=== PATIENT | male | born 1985 | race Caucasian/White ===

== ENCOUNTER 2017-12-29 12:25 | Emergency (ER) | payer OTHER ==
[~2017-12-29] VITALS: Ht 188 cm; Wt 97.5 kg
[~2017-12-29 12:25] MED LIST: ANTIVERT12.5 MG PO; AUGMENTIN 875875 MG PO; BACTRIM DS TAB1 EACH PO; CELEBREX 200 M200 MG; CELEBREX 200 M200 MG PO; CORTISPORIN OTI10 ML OTIC; EAR DROPS15 ML OTIC; FLEXERIL PO; HYCET 7.5 MG-3473 ML PO; HYDROCODON-ACE1 EAC7 PO; IBUPROFEN 400400 M2 PO; IBUPROFEN 600600 M1 PO; IBUPROFEN 800800 M1 PO; IBUPROFEN 800800 MG PO; INDOMETHACIN 2525 MG PO; MEDROL DOSPAK21 TAB PO; NOHOMEMEDICATIONS; NORCO 5-325 TA1 EACH PO; PERCOCET 5-3251 EACH PO; PROMETHAZINE-C120 ML PO; TRAMADOL 50 MG50 MG PO; VICODIN; ZOFRAN ODT4 MG PO; ZOFRAN4 MG PO; ZPAK PO
[2017-12-29 12:57] LABS: HEMATOCRIT 46.5 % (42.0-52.0); HEMOGLOBIN 15.7 gm/dL (14.0-18.0); MCH 30.7 pg (26.0-34.0); MCHC 33.8 g/dL (28.0-37.0); MCV 90.6 fL (80.0-100.0); RBC 5.13 mil/uL (4.50-6.00); RDW 13.5 % (10.5-14.5); WBC 8.3 thou/uL (4.0-11.0)
[2017-12-29 13:04] LABS: CALCIUM 9.2 mg/dL (8.5-10.1); CREATININE 0.9 mg/dL (0.7-1.3); POTASSIUM 3.9 mmol/L (3.5-5.1)
[2017-12-29 13:10] LABS: ALBUMIN 3.9 g/dL (3.4-5.0); TOTAL BILIRUBIN 0.5 mg/dL (<0.1-1.0); TOTAL PROTEIN 8.2 g/dL (6.4-8.2)
[2017-12-29 14:19] LABS: URINE BILIRUBIN NEGATIVE (Negative); URINE BLOOD TRACE (Negative); URINE CLARITY CLEAR; URINE COLOR YELLOW; URINE GLUCOSE-RANDOM* NEGATIVE (Negative); URINE KETONES NEGATIVE (Negative); URINE LEUKOCYTES-REFLEX NEGATIVE (Negative); URINE NITRITE-REFLEX NEGATIVE (Negative); URINE PROTEIN (DIPSTICK) NEGATIVE (Negative); URINE UROBILINOGEN 0.2 E.U./dl (0.2-1.0)
[2017-12-29 14:49] VITALS: BP 111/72
== END 2017-12-29 14:50 | disposition home or self-care (01) ==
LOC: ER 12:25
PROVIDERS: Student in an Organized Health Care Education/Training Program
DX: R19.7 Diarrhea, unspecified (principal); F17.210 Nicotine dependence, cigarettes, uncomplicated; M19.90 Unspecified osteoarthritis, unspecified site; K64.9 Unspecified hemorrhoids; Z88.5 Allergy status to narcotic agent

== ENCOUNTER 2018-03-27 23:14 | Emergency (ER) | payer OTHER ==
[~2018-03-27] VITALS: Ht 190.5 cm; Wt 128.8 kg
[2018-03-27 23:37] LABS: URINE BILIRUBIN NEGATIVE (Negative); URINE BLOOD 1+ (Negative); URINE CLARITY CLEAR; URINE COLOR YELLOW; URINE GLUCOSE-RANDOM* NEGATIVE (Negative); URINE KETONES TRACE (Negative); URINE LEUKOCYTES-REFLEX NEGATIVE (Negative); URINE NITRITE-REFLEX NEGATIVE (Negative); URINE PROTEIN (DIPSTICK) NEGATIVE (Negative); URINE SPECIFIC GRAVITY >= 1.030 (1.005-1.035); URINE UROBILINOGEN 0.2 E.U./dl (0.2-1.0)
[2018-03-27 23:44] LABS: BACTERIA-REFLEX 1-9 Few /HPF (None Seen); CRYSTALS None Seen /LPF (None Seen); HYALINE CASTS 0-3 Few /LPF (None Seen); MUCUS 0-3 Light strn/LPF (None Seen); SQUAMOUS 0-3 Few /LPF (0-3); URINE RBC 0-2 Rare /HPF (0-2); URINE WBC-REFLEX 0-5 Rare /HPF (0-5)
[2018-03-28] MEDS ORDERED: IBUPROFEN 800800 M1 PO (04:10)
[2018-03-28 04:19] LABS: HEMATOCRIT 45.2 % (42.0-52.0); HEMOGLOBIN 15.2 gm/dL (14.0-18.0); MCH 30.8 pg (26.0-34.0); MCHC 33.6 g/dL (28.0-37.0); MCV 91.6 fL (80.0-100.0); RBC 4.94 mil/uL (4.50-6.00); RDW 13.7 % (10.5-14.5); WBC 9.3 thou/uL (4.0-11.0)
[2018-03-28 04:26] LABS: CALCIUM 9.6 mg/dL (8.5-10.1); CREATININE 0.9 mg/dL (0.7-1.3); POTASSIUM 4.5 mmol/L (3.5-5.1)
[2018-03-28 05:51] VITALS: BP 119/71
[2018-03-28] MEDS ORDERED: PHENAZOPYRIDIN200 M2 PO (15:41)
[2018-03-28] MEDS ORDERED: NAPROSYN500 MG PO (15:42)
== END 2018-03-28 05:52 | disposition home or self-care (01) ==
LOC: ER 23:14
PROVIDERS: Emergency Medicine; Physician Assistant
DX: K59.00 Constipation, unspecified (principal); R31.9 Hematuria, unspecified; F17.210 Nicotine dependence, cigarettes, uncomplicated; M19.90 Unspecified osteoarthritis, unspecified site; Z88.5 Allergy status to narcotic agent

== ENCOUNTER 2018-03-28 13:54 | Emergency (ER) | payer OTHER ==
[~2018-03-28] VITALS: Ht 190.5 cm; Wt 128.8 kg
[2018-03-28 15:13] LABS: URINE BILIRUBIN NEGATIVE (Negative); URINE BLOOD TRACE (Negative); URINE CLARITY CLEAR; URINE COLOR YELLOW; URINE GLUCOSE-RANDOM* NEGATIVE (Negative); URINE KETONES NEGATIVE (Negative); URINE LEUKOCYTES NEGATIVE (Negative); URINE NITRITE NEGATIVE (Negative); URINE PROTEIN (DIPSTICK) NEGATIVE (Negative); URINE UROBILINOGEN 0.2 E.U./dl (0.2-1.0)
[2018-03-28] MEDS ORDERED: PHENAZOPYRIDIN200 M2 PO (15:41)
[2018-03-28] MEDS ORDERED: NAPROSYN500 MG PO (15:42)
[2018-03-28 15:48] VITALS: BP 126/94
== END 2018-03-28 15:51 | disposition home or self-care (01) ==
LOC: ER 13:54
PROVIDERS: Physician Assistant
DX: R30.0 Dysuria (principal); M54.9 Dorsalgia, unspecified; R31.9 Hematuria, unspecified; F17.210 Nicotine dependence, cigarettes, uncomplicated; Z88.5 Allergy status to narcotic agent; M19.90 Unspecified osteoarthritis, unspecified site

== ENCOUNTER 2018-05-12 10:39 | Emergency (ER) | payer OTHER ==
[~2018-05-12] VITALS: Ht 190.5 cm; Wt 180.1 kg
[~2018-05-12 10:39] MED LIST changes: +NAPROSYN500 MG PO; +PHENAZOPYRIDIN200 M2 PO
[2018-05-12 10:51] VITALS: BP 113/76
[2018-05-12] MEDS ORDERED: TESSALON PERLE100 MG PO (11:28)
== END 2018-05-12 11:40 | disposition home or self-care (01) ==
LOC: ER 10:39
DX: J06.9 Acute upper respiratory infection, unspecified (principal)

== ENCOUNTER 2018-09-01 17:12 | Emergency (ER) | payer OTHER ==
[~2018-09-01] VITALS: Ht 190.5 cm; Wt 127.0 kg
[~2018-09-01 17:12] MED LIST changes: +TESSALON PERLE100 MG PO
[2018-09-01] MEDS ORDERED: NAPROSYN500 MG PO (19:08)
[2018-09-01] MEDS ORDERED: NORFLEX100 MG PO (19:08)
[2018-09-01 19:15] VITALS: BP 142/89
== END 2018-09-01 19:16 | disposition home or self-care (01) ==
LOC: ER 17:12
DX: S46.811A Strain of other muscles, fascia and tendons at shoulder and upper arm level, right arm, initial encounter (principal); M75.01 Adhesive capsulitis of right shoulder; M72.2 Plantar fascial fibromatosis; F17.210 Nicotine dependence, cigarettes, uncomplicated; M19.90 Unspecified osteoarthritis, unspecified site; Z88.5 Allergy status to narcotic agent; V89.2XXA Person injured in unspecified motor-vehicle accident, traffic, initial encounter; Y92.89 Other specified places as the place of occurrence of the external cause; Y93.89 Activity, other specified; Y99.8 Other external cause status

== ENCOUNTER 2018-09-26 20:12 | Emergency (ER) | payer OTHER ==
[~2018-09-26] VITALS: Ht 190.5 cm; Wt 126.5 kg
[~2018-09-26 20:12] MED LIST changes: +NORFLEX100 MG PO
[2018-09-26 20:15] VITALS: BP 124/94
[2018-09-26] MEDS ORDERED: DOXYCYCLINE 10100 MG PO (20:32)
== END 2018-09-26 21:05 | disposition home or self-care (01) ==
LOC: ER 20:12
DX: S20.462A Insect bite (nonvenomous) of left back wall of thorax, initial encounter (principal); M19.90 Unspecified osteoarthritis, unspecified site; F17.210 Nicotine dependence, cigarettes, uncomplicated; Z88.5 Allergy status to narcotic agent; W57.XXXA Bitten or stung by nonvenomous insect and other nonvenomous arthropods, initial encounter; Y93.89 Activity, other specified; Y92.89 Other specified places as the place of occurrence of the external cause; Y99.8 Other external cause status

== ENCOUNTER 2019-01-20 12:35 | Emergency (ER) | payer OTHER ==
[~2019-01-20] VITALS: Ht 190.5 cm; Wt 127.0 kg
[~2019-01-20 12:35] MED LIST changes: +DOXYCYCLINE 10100 MG PO
[2019-01-20 14:26] VITALS: BP 116/78
== END 2019-01-20 14:27 | disposition home or self-care (01) ==
LOC: ER 12:35
DX: T63.461A Toxic effect of venom of wasps, accidental (unintentional), initial encounter (principal); M19.90 Unspecified osteoarthritis, unspecified site; F17.210 Nicotine dependence, cigarettes, uncomplicated; Z88.5 Allergy status to narcotic agent

== ENCOUNTER 2019-02-03 19:30 | Emergency (ER) | payer OTHER ==
[~2019-02-03] VITALS: Ht 190.5 cm; Wt 130.6 kg
[2019-02-03 20:18] LABS: ABSOLUTE NEUTROPHILS 8.3 thou/uL (1.4-8.2); BASOPHILS 0.3 % (0.0-2.0); EOSINOPHILS 1.6 % (0.0-3.0); HEMATOCRIT 45.2 % (42.0-52.0); HEMOGLOBIN 14.9 gm/dL (14.0-18.0); MCH 30.2 pg (26.0-34.0); MCV 91.7 fL (80.0-100.0); MONOCYTES 7.3 % (1.0-8.0); PLATELET COUNT 153 thou/uL (150-400); POLYS 73.8 % (36.0-66.0); RBC 4.93 mil/uL (4.50-6.00); RDW 13.4 % (10.5-14.5); WBC 11.2 thou/uL (4.0-11.0)
[2019-02-03 20:28] LABS: CALCIUM 9.5 mg/dL (8.5-10.1); CREATININE 0.8 mg/dL (0.7-1.3); POTASSIUM 4.1 mmol/L (3.5-5.1)
[2019-02-03 20:35] LABS: ALBUMIN 3.7 g/dL (3.4-5.0); TOTAL BILIRUBIN 0.4 mg/dL (<0.1-1.0); TOTAL PROTEIN 7.8 g/dL (6.4-8.2)
[2019-02-03] MEDS ORDERED: FLAGYL500 M1 PO (22:20)
[2019-02-03] MEDS ORDERED: CIPRO500 MG PO (22:20)
[2019-02-03] MEDS ORDERED: BENTYL 20 MG TA20 M1 PO (22:20)
[2019-02-03] MEDS ORDERED: ONDANSETRON HCL4 M2 PO (22:21)
[2019-02-03 22:28] VITALS: BP 135/89
== END 2019-02-03 22:40 | disposition home or self-care (01) ==
LOC: ER 19:30
PROVIDERS: Physician Assistant
DX: R19.7 Diarrhea, unspecified (principal); E86.0 Dehydration; R11.2 Nausea with vomiting, unspecified; F17.210 Nicotine dependence, cigarettes, uncomplicated; M19.90 Unspecified osteoarthritis, unspecified site; Z88.5 Allergy status to narcotic agent

== ENCOUNTER 2019-02-10 13:55 | Emergency (ER) | payer OTHER ==
[~2019-02-10] VITALS: Ht 190.5 cm; Wt 132.4 kg
[~2019-02-10 13:55] MED LIST changes: +BENTYL 20 MG TA20 M1 PO; +CIPRO500 MG PO; +FLAGYL500 M1 PO; +ONDANSETRON HCL4 M2 PO
[2019-02-10 14:30] LABS: URINE BILIRUBIN NEGATIVE (Negative); URINE BLOOD TRACE (Negative); URINE CLARITY CLEAR; URINE COLOR YELLOW; URINE GLUCOSE-RANDOM* NEGATIVE (Negative); URINE KETONES NEGATIVE (Negative); URINE LEUKOCYTES-REFLEX NEGATIVE (Negative); URINE NITRITE-REFLEX NEGATIVE (Negative); URINE PROTEIN (DIPSTICK) NEGATIVE (Negative); URINE SPECIFIC GRAVITY 1.015 (1.005-1.035); URINE UROBILINOGEN 0.2 E.U./dl (0.2-1.0)
[2019-02-10 15:09] LABS: ABSOLUTE NEUTROPHILS 3.2 thou/uL (1.4-8.2); BASOPHILS 0.5 % (0.0-2.0); HEMATOCRIT 45.4 % (42.0-52.0); HEMOGLOBIN 15.1 gm/dL (14.0-18.0); LYMPHOCYTES 30.7 % (24.0-44.0); MCH 30.7 pg (26.0-34.0); MCHC 33.2 g/dL (28.0-37.0); MCV 92.3 fL (80.0-100.0); POLYS 55.8 % (36.0-66.0); RBC 4.92 mil/uL (4.50-6.00); RDW 13.6 % (10.5-14.5); WBC 5.7 thou/uL (4.0-11.0)
[2019-02-10 15:15] LABS: CALCIUM 9.1 mg/dL (8.5-10.1); CREATININE 0.7 mg/dL (0.7-1.3); POTASSIUM 4.3 mmol/L (3.5-5.1)
[2019-02-10 15:22] LABS: ALBUMIN 3.4 g/dL (3.4-5.0); TOTAL BILIRUBIN 0.2 mg/dL (<0.1-1.0); TOTAL PROTEIN 7.3 g/dL (6.4-8.2)
[2019-02-10] MEDS ORDERED: MOBIC7.5 MG PO (15:56)
[2019-02-10] MEDS ORDERED: NORFLEX100 MG PO (15:56)
[2019-02-10 16:03] LABS: PLATELET COUNT 157 thou/uL (150-400)
[2019-02-10 16:04] LABS: LARGE PLATELETS RARE
[2019-02-10 16:11] VITALS: BP 128/80
== END 2019-02-10 16:15 | disposition home or self-care (01) ==
LOC: ER 13:55
PROVIDERS: Nurse Practitioner Family
DX: S29.012A Strain of muscle and tendon of back wall of thorax, initial encounter (principal); F17.210 Nicotine dependence, cigarettes, uncomplicated; M19.90 Unspecified osteoarthritis, unspecified site; K58.9 Irritable bowel syndrome, unspecified; I10 Essential (primary) hypertension; Z88.5 Allergy status to narcotic agent; W22.8XXA Striking against or struck by other objects, initial encounter; Y92.89 Other specified places as the place of occurrence of the external cause; Y93.89 Activity, other specified; Y99.8 Other external cause status

== ENCOUNTER 2019-08-14 17:21 | Emergency (ER) | payer OTHER ==
[~2019-08-14] VITALS: Ht 190.5 cm; Wt 140.6 kg
[~2019-08-14 17:21] MED LIST changes: +MOBIC7.5 MG PO
[2019-08-14 18:28] LABS: ABSOLUTE NEUTROPHILS 6.6 thou/uL (1.4-8.2); BASOPHILS 0.7 % (0.0-2.0); EOSINOPHILS 0.6 % (0.0-3.0); HEMATOCRIT 44.5 % (42.0-52.0); HEMOGLOBIN 14.6 gm/dL (14.0-18.0); LYMPHOCYTES 17.8 % (24.0-44.0); MCH 30.4 pg (26.0-34.0); MCHC 32.8 g/dL (28.0-37.0); MCV 92.5 fL (80.0-100.0); MONOCYTES 8.6 % (1.0-8.0); PLATELET COUNT 157 thou/uL (150-400); POLYS 72.3 % (36.0-66.0); RBC 4.81 mil/uL (4.50-6.00); RDW 13.8 % (10.5-14.5); WBC 9.1 thou/uL (4.0-11.0)
[2019-08-14 18:38] LABS: CALCIUM 9.4 mg/dL (8.5-10.1); CREATININE 0.9 mg/dL (0.7-1.3); POTASSIUM 4.2 mmol/L (3.5-5.1)
[2019-08-14 18:44] LABS: ALBUMIN 3.5 g/dL (3.4-5.0); TOTAL BILIRUBIN 0.5 mg/dL (<0.1-1.0); TOTAL PROTEIN 7.4 g/dL (6.4-8.2)
[2019-08-14 18:53] LABS: URINE BILIRUBIN 1+ (Negative); URINE BLOOD NEGATIVE (Negative); URINE CLARITY CLEAR; URINE COLOR YELLOW; URINE GLUCOSE-RANDOM* NEGATIVE (Negative); URINE KETONES NEGATIVE (Negative); URINE LEUKOCYTES-REFLEX NEGATIVE (Negative); URINE NITRITE-REFLEX NEGATIVE (Negative); URINE PROTEIN (DIPSTICK) NEGATIVE (Negative); URINE SPECIFIC GRAVITY 1.015 (1.005-1.035)
[2019-08-14 19:53] VITALS: BP 109/72
== END 2019-08-14 20:08 | disposition home or self-care (01) ==
LOC: ER 17:21
PROVIDERS: Physician Assistant
DX: R19.7 Diarrhea, unspecified (principal); R33.9 Retention of urine, unspecified; R10.30 Lower abdominal pain, unspecified; R63.5 Abnormal weight gain; M19.90 Unspecified osteoarthritis, unspecified site; F17.210 Nicotine dependence, cigarettes, uncomplicated; Z88.5 Allergy status to narcotic agent

== ENCOUNTER 2019-08-15 00:58 | Emergency (ER) | payer OTHER ==
[~2019-08-15] VITALS: Ht 190.5 cm; Wt 140.6 kg
[2019-08-15 01:25] VITALS: BP 151/111
== END 2019-08-15 01:37 | disposition home or self-care (01) ==
LOC: ER 00:58
DX: T83.028A Displacement of other urinary catheter, initial encounter (principal); F17.210 Nicotine dependence, cigarettes, uncomplicated; M19.90 Unspecified osteoarthritis, unspecified site; Y84.8 Other medical procedures as the cause of abnormal reaction of the patient, or of later complication, without mention of misadventure at the time of the procedure; Y92.89 Other specified places as the place of occurrence of the external cause

== ENCOUNTER 2019-12-21 07:34 | Emergency (ER) | payer OTHER ==
[~2019-12-21] VITALS: Ht 190.5 cm; Wt 142.9 kg
[2019-12-21 08:55] LABS: ABSOLUTE NEUTROPHILS 3.6 thou/uL (1.4-8.2); BASOPHILS 0.6 % (0.0-2.0); EOSINOPHILS 2.8 % (0.0-3.0); HEMATOCRIT 45.3 % (42.0-52.0); HEMOGLOBIN 15.4 gm/dL (14.0-18.0); LYMPHOCYTES 38.3 % (24.0-44.0); MCH 31.8 pg (26.0-34.0); MCHC 34.1 g/dL (28.0-37.0); MCV 93.2 fL (80.0-100.0); MONOCYTES 10.8 % (1.0-8.0); POLYS 47.5 % (36.0-66.0); RBC 4.85 mil/uL (4.50-6.00); WBC 7.5 thou/uL (4.0-11.0)
[2019-12-21 08:58] LABS: CALCIUM 9.2 mg/dL (8.5-10.1); POTASSIUM 3.6 mmol/L (3.5-5.1)
[2019-12-21 09:05] LABS: ALBUMIN 3.7 g/dL (3.4-5.0); DIRECT BILIRUBIN 0.1 mg/dL (<0.1-0.2); TOTAL BILIRUBIN 0.4 mg/dL (0.2-1.0); TOTAL PROTEIN 7.7 g/dL (6.4-8.2)
[2019-12-21 09:30] LABS: PLATELET COUNT 141 thou/uL (150-400)
[2019-12-21 10:30] VITALS: BP 118/84
[2019-12-21 10:44] LABS: URINE BILIRUBIN NEGATIVE (Negative); URINE BLOOD NEGATIVE (Negative); URINE CLARITY CLEAR; URINE COLOR YELLOW; URINE GLUCOSE-RANDOM* NEGATIVE (Negative); URINE KETONES NEGATIVE (Negative); URINE LEUKOCYTES-REFLEX NEGATIVE (Negative); URINE NITRITE-REFLEX NEGATIVE (Negative); URINE PROTEIN (DIPSTICK) NEGATIVE (Negative); URINE SPECIFIC GRAVITY 1.015 (1.005-1.035)
== END 2019-12-21 12:00 | disposition home or self-care (01) ==
LOC: ER 07:34
PROVIDERS: Emergency Medicine
DX: R10.84 Generalized abdominal pain (principal); R19.7 Diarrhea, unspecified; F17.210 Nicotine dependence, cigarettes, uncomplicated

== ENCOUNTER 2020-02-01 23:42 | Emergency (ER) | payer OTHER ==
[~2020-02-01] VITALS: Ht 190.5 cm; Wt 140.6 kg
[2020-02-01] MEDS ORDERED: BENTYL 10 MG CA10 MG PO (23:54)
[2020-02-02 01:06] LABS: URINE BILIRUBIN NEGATIVE (Negative); URINE BLOOD 2+ (Negative); URINE CLARITY CLEAR; URINE COLOR YELLOW; URINE GLUCOSE-RANDOM* NEGATIVE (Negative); URINE KETONES NEGATIVE (Negative); URINE LEUKOCYTES-REFLEX NEGATIVE (Negative); URINE NITRITE-REFLEX NEGATIVE (Negative); URINE PROTEIN (DIPSTICK) NEGATIVE (Negative); URINE UROBILINOGEN 0.2 E.U./dl (0.2-1.0)
[2020-02-02 01:20] LABS: SQUAMOUS 0-3 Few /LPF (0-3); URINE WBC-REFLEX 0-5 Rare /HPF (0-5)
[2020-02-02 01:21] LABS: BACTERIA-REFLEX 1-9 Few /HPF (None Seen); CASTS None Seen /LPF (None Seen); CRYSTALS None Seen /LPF (None Seen); MUCUS 0-3 Light strn/LPF (None Seen)
[2020-02-02] MEDS ORDERED: LACTULOSE PO (03:18)
[2020-02-02 03:36] VITALS: BP 140/99
== END 2020-02-02 03:38 | disposition home or self-care (01) ==
LOC: ER 23:42
PROVIDERS: Emergency Medicine
DX: K56.41 Fecal impaction (principal); R30.0 Dysuria; F17.210 Nicotine dependence, cigarettes, uncomplicated; M19.90 Unspecified osteoarthritis, unspecified site; Z88.5 Allergy status to narcotic agent

== ENCOUNTER 2020-05-11 20:49 | Emergency (ER) | payer OTHER ==
[~2020-05-11] VITALS: Ht 190.5 cm; Wt 141.1 kg
[~2020-05-11 20:49] MED LIST changes: +BENTYL 10 MG CA10 MG PO; +LACTULOSE PO
[2020-05-11] MEDS ORDERED: TRIAMCINOLONE A15 G3 TOP (23:44)
[2020-05-11] MEDS ORDERED: NAPROSYN500 MG PO (23:44)
[2020-05-11] MEDS ORDERED: NORFLEX100 MG PO (23:44)
[2020-05-12 00:07] VITALS: BP 124/85
--- NOTE | 2020-05-14 07:18 | EKG ---
[facility] [address] [place] [address] ELECTROCARDIOGRAM REPORT Name: SHAUN VAUGHAN JR Room #: DEP Eryn#: [id number] Admission: 05/11/20 Attend Phys: Discharge: 05/12/20 Date of : 81 Report #: [id number] <ELECTRONICALLY SIGNED> By: Earnest Sigala MD, FACC 05/14/20 0718 18 18 Earnest Sigala MD, FACC /EPI
== END 2020-05-12 00:08 | disposition home or self-care (01) ==
LOC: ER 20:49
DX: S29.012A Strain of muscle and tendon of back wall of thorax, initial encounter (principal); M62.830 Muscle spasm of back; L25.9 Unspecified contact dermatitis, unspecified cause; M25.511 Pain in right shoulder; M19.90 Unspecified osteoarthritis, unspecified site; F17.210 Nicotine dependence, cigarettes, uncomplicated; Z79.899 Other long term (current) drug therapy; Z88.5 Allergy status to narcotic agent; X50.0XXA Overexertion from strenuous movement or load, initial encounter; Y93.89 Activity, other specified; Y92.89 Other specified places as the place of occurrence of the external cause; Y99.8 Other external cause status

== ENCOUNTER 2020-12-21 16:51 | Inpatient (IN) | payer OTHER ==
[~2020-12-21] VITALS: Ht 190.5 cm; Wt 139.3 kg
[~2020-12-21 16:51] MED LIST changes: +TRIAMCINOLONE A15 G3 TOP
[2020-12-21 17:01] VITALS: BP 125/95
[2020-12-21 17:28] LABS: ABSOLUTE NEUTROPHILS 7.1 thou/uL (1.4-8.2); BASOPHILS 0.3 % (0.0-2.0); EOSINOPHILS 0.8 % (0.0-3.0); HEMATOCRIT 46.6 % (42.0-52.0); HEMOGLOBIN 15.5 gm/dL (14.0-18.0); LYMPHOCYTES 15.2 % (24.0-44.0); MCH 30.7 pg (26.0-34.0); MCHC 33.4 g/dL (28.0-37.0); MCV 91.9 fL (80.0-100.0); MONOCYTES 6.8 % (1.0-8.0); PLATELET COUNT 139 thou/uL (150-400); POLYS 76.9 % (36.0-66.0); RBC 5.07 mil/uL (4.50-6.00); RDW 13.7 % (10.5-14.5); WBC 9.2 thou/uL (4.0-11.0)
[2020-12-21 17:40] LABS: CALCIUM 9.5 mg/dL (8.5-10.1); POTASSIUM 3.9 mmol/L (3.5-5.1)
[2020-12-21 17:46] LABS: ALBUMIN 3.9 g/dL (3.4-5.0); TOTAL BILIRUBIN 0.7 mg/dL (0.2-1.0); TOTAL PROTEIN 7.7 g/dL (6.4-8.2)
[2020-12-21 23:18] VITALS: BP 122/83
--- NOTE | 2020-12-22 10:48 | EKG ---
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1985 Requested By: Aaron Villela Order Number: [id number] MD: Yehuda Salguero Measurements Intervals [place] Rate: 68 P: -3 NM: 156 QRS: 18 QRSD: 105 T: 37 QT: 397 QTc: 423 Interpretive Statements Sinus rhythm No significant abnormality Compared to ECG 05/11/2020 21:19:20 No significant changes Electronically Signed On 12-22-2020 10:47:52 CDT by Yehuda Salguero [email or web address] <ELECTRONICALLY SIGNED> By: Yehuda Salguero MD, [facility] 12/22/20 1047 1656 165 Yehuda Salguero MD, [facility] /EPI
== END 2020-12-22 00:10 | disposition home or self-care (01) | DRG 390 ==
LOC: ER 16:51 → EROBS 22:47
PROVIDERS: Emergency Medicine; ADMIT Internal Medicine; ATTEND Internal Medicine
DX: K56.600 Partial intestinal obstruction, unspecified as to cause (principal); M19.90 Unspecified osteoarthritis, unspecified site; K56.41 Fecal impaction; G89.22 Chronic post-thoracotomy pain; M54.9 Dorsalgia, unspecified; Z88.6 Allergy status to analgesic agent; Z79.899 Other long term (current) drug therapy; Z20.822 Contact with and (suspected) exposure to COVID-19

== ENCOUNTER 2021-03-27 12:01 | Emergency (ER) | payer OTHER ==
[~2021-03-27] VITALS: Ht 190.5 cm; Wt 123.4 kg
[2021-03-27 13:19] LABS: ABSOLUTE NEUTROPHILS 4.5 thou/uL (1.4-8.2); BASOPHILS 0.6 % (0.0-2.0); EOSINOPHILS 1.3 % (0.0-3.0); HEMATOCRIT 44.8 % (42.0-52.0); HEMOGLOBIN 15.1 gm/dL (14.0-18.0); LYMPHOCYTES 23.4 % (24.0-44.0); MCH 31.2 pg (26.0-34.0); MCHC 33.8 g/dL (28.0-37.0); MCV 92.4 fL (80.0-100.0); MONOCYTES 9.5 % (1.0-8.0); PLATELET COUNT 135 thou/uL (150-400); POLYS 65.2 % (36.0-66.0); RBC 4.85 mil/uL (4.50-6.00); RDW 13.9 % (10.5-14.5)
[2021-03-27 13:32] LABS: ANION GAP 9 mmol/L (7-16); BUN 9 mg/dL (7-18); CHLORIDE 107 mmol/L (98-107); CO2 27 mmol/L (21-32); CREATININE 0.9 mg/dL (0.7-1.3); GLUCOSE 90 mg/dL (74-106); POTASSIUM 3.6 mmol/L (3.5-5.1); SODIUM 143 mmol/L (136-145)
[2021-03-27 13:40] LABS: ALBUMIN 3.6 g/dL (3.4-5.0); LIPASE 124 U/L (73-393); SGOT 28 U/L (15-37); SGPT 34 U/L (30-65); TOTAL BILIRUBIN 0.6 mg/dL (0.2-1.0); TOTAL PROTEIN 7.4 g/dL (6.4-8.2)
[2021-03-27 13:46] VITALS: BP 151/100
[2021-03-27] MEDS ORDERED: CYCLOBENZAPRINE5 MG PO (13:50)
--- NOTE | 2021-03-28 07:03 | EKG ---
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1985 Requested By: Tono Selby Order Number: [id number] MD: Earnest Sigala Measurements Intervals [place] Rate: 71 P: 19 ID: 143 QRS: 11 QRSD: 96 T: 8 QT: 364 QTc: 396 Interpretive Statements Sinus rhythm Abnormal R-wave progression, early transition Baseline wander in lead(s) II Compared to ECG 12/21/2020 16:56:53 No significant changes Electronically Signed On 03-28-2021 7:03:14 CDT by Earnest Sigala [email or web address] <ELECTRONICALLY SIGNED> By: Earnest Sigala MD, [facility] 03/28/21 07 D: [id number] Earnest Sigala MD, FACC /EPI
== END 2021-03-27 13:46 | disposition home or self-care (01) ==
LOC: ER 12:01
PROVIDERS: Emergency Medicine
DX: R07.89 Other chest pain (principal); M19.90 Unspecified osteoarthritis, unspecified site; M72.2 Plantar fascial fibromatosis; F17.210 Nicotine dependence, cigarettes, uncomplicated; F12.90 Cannabis use, unspecified, uncomplicated; Z88.5 Allergy status to narcotic agent